=== PATIENT | female | born 1960 | race African-American/Black ===

== ENCOUNTER 2018-11-07 10:01 | Inpatient (IN) | payer MEDICAID ==
[~2018-11-07] VITALS: Ht 167.6 cm; Wt 49.2 kg
[2018-11-07] MEDS ORDERED: ASPIRIN 81MG TABLET PO ONE (10:45)
[2018-11-07] MEDS ORDERED: LEVOFLOXACIN 750MG PREMIX 150 ML IV ONE (10:45)
[2018-11-07] MEDS ORDERED: SODIUM CHLORIDE 0.9% 1000ML BAG (SEPSIS BOLUS) IV ONE (10:45)
[2018-11-07] MEDS ORDERED: DIPHENHYDRAMINE 50MG/ML VIAL IV ONE (10:45)
[2018-11-07] MEDS ORDERED: NITROGLYCERIN 0.4MG TABLET SL SL PRN ×2 (10:45→15:30)
[2018-11-07 11:10] LABS: CLARITY URINE CLEAR (CLEAR); COLOR URINE YELLOW (YELLOW); KETONES URINE NEGATIVE (NEGATIVE); LEUKOCYTE ESTERASE URINE NEGATIVE (NEGATIVE); NITRITE URINE NEGATIVE (NEGATIVE); OCCULT BLOOD URINE NEGATIVE (NEGATIVE); PROTEIN URINE NEGATIVE (NEGATIVE)
[2018-11-07 11:45] LABS: BASOPHILS % 1.1 % (0.0-2.0); EOSINOPHILS % 2.3 % (0.0-5.0); HEMATOCRIT. 45.8 % (36.0-48.0); HEMOGLOBIN. 15.2 g/dL (12.0-16.0); LYMPHOCYTES % 26.1 % (20.0-50.0); MEAN CORPUSCULAR HEMOGLOBIN 30.6 pg (28.0-32.0); MEAN PLATELET VOLUME 9.5 fl (7.4-10.4); MONOCYTES % 13.5 % (2.0-8.0); PLATELET 207 x1000/uL (130-400); RED BLOOD CELL COUNT 4.98 mill/uL (4.2-5.4); RED CELL DISTRIBUTION WIDTH 14.3 % (11.6-14.6)
[2018-11-07 11:59] LABS: D-DIMER 0.25 mg/L FEU (<0.50); PARTIAL THROMBOPLASTIN TIME 26.8 sec (23.4-31.0)
[2018-11-07 12:14] LABS: CHLORIDE 109 mEq/L (98-107)
[2018-11-07] MEDS ORDERED: PHENYTOIN SODIUM 1,000 MG in SODIUM CHLORIDE 0.9% 100 ML IV ONE (13:00)
[2018-11-07] MEDS ORDERED: DOCUSATE SODIUM 100MG CAPSULE PO PRN (15:30)
[2018-11-07] MEDS ORDERED: IPRATROPIUM/ALBUTEROL 0.5-3(2.5)MG/3ML NEB INH PRN (15:30)
[2018-11-07] MEDS ORDERED: KETOROLAC 15MG/ML VIAL IV PRN (15:30)
[2018-11-07] MEDS ORDERED: MAGNESIUM/ALUMINUM HYDROXIDE/SIMETHICONE 30ML UDC PO PRN (15:30)
[2018-11-07] MEDS ORDERED: LORAZEPAM 0.5MG TABLET PO PRN (15:30)
[2018-11-07] MEDS ORDERED: ZOLPIDEM TARTRATE 5MG TABLET PO PRN (15:30)
[2018-11-07] MEDS ORDERED: GUAIFENESIN 200MG/10ML SUGAR FREE UDC PO PRN (15:30)
[2018-11-07] MEDS ORDERED: ACETAMINOPHEN 325MG TABLET PO PRN (15:30)
[2018-11-07] MEDS ORDERED: ONDANSETRON HCL 4MG/2ML INJ IV PRN (15:30)
[2018-11-07] MEDS ORDERED: CLONIDINE 0.1MG TABLET PO PRN (15:30)
[2018-11-07 18:28] VITALS: BP 188/116
[2018-11-07] MEDS: DILTIAZEM HCL 60MG TABLET PO SCH (18:35)
[2018-11-07 20:00] VITALS: BP 157/78
[2018-11-07] MEDS: FAMOTIDINE 20MG TABLET PO SCH (20:43)
[2018-11-07] MEDS ORDERED: ENOXAPARIN 40MG/0.4ML SYR SUBCUT SCH (21:00)
[2018-11-07 21:30] VITALS: BP 157/78
[2018-11-07] MEDS ORDERED: IBUP-2028 MT (22:57)
[2018-11-07] MEDS ORDERED: MULT-1146 MT (22:57)
[2018-11-07] MEDS ORDERED: PHEN100C4 MT (22:57)
[2018-11-07] MEDS ORDERED: AMLO5TAB88 MT (22:57)
[2018-11-07 23:45] VITALS: BP 118/79
[2018-11-08 04:00] VITALS: BP 164/90
[2018-11-08] MEDS: DILTIAZEM HCL 60MG TABLET PO SCH ×3 (05:23→13:26)
[2018-11-08] MEDS ORDERED: PHEN200C5 PO (05:34)
[2018-11-08 08:00] VITALS: BP 127/85
[2018-11-08] MEDS ORDERED: ASPIRIN 325MG EC TABLET PO SCH (09:00)
[2018-11-08] MEDS: FAMOTIDINE 20MG TABLET PO SCH (10:10)
[2018-11-08 10:26] LABS: CREATINE KINASE 71 IU/L (26-192)
[2018-11-08 12:00] VITALS: BP 154/85
[2018-11-08 14:11] VITALS: BP 154/85
[2018-11-08 16:00] VITALS: BP 118/82
== END 2018-11-08 16:21 | disposition home or self-care (01) | DRG 816 ==
LOC: ER 10:01 → 6WST 13:27 → ENRESERV 15:44 → 6WST 18:29
PROVIDERS: ADMIT Internal Medicine; ATTEND Internal Medicine
DX: T40.5X1A Poisoning by cocaine, accidental (unintentional), initial encounter (principal); J90 Pleural effusion, not elsewhere classified; G40.909 Epilepsy, unspecified, not intractable, without status epilepticus; F17.210 Nicotine dependence, cigarettes, uncomplicated; I10 Essential (primary) hypertension; J98.11 Atelectasis; F14.10 Cocaine abuse, uncomplicated; J44.9 Chronic obstructive pulmonary disease, unspecified; I73.9 Peripheral vascular disease, unspecified; R07.89 Other chest pain; Y92.89 Other specified places as the place of occurrence of the external cause
CPT/HCPCS: 36415; 71045; 80061; 80185; 82550; 82553; 83036; 83605; 83880; 84145; 84484; 85379; 87804; 93005; 93970; 96365; 96375; 99285; J1165; J1200; J1650; J1956; J7030; J7050

== ENCOUNTER 2023-12-20 00:47 | Inpatient (IN) | payer MEDICAID ==
[~2023-12-20] VITALS: Ht 167.6 cm; Wt 53.7 kg
[~2023-12-20 00:47] MED LIST: ALBU18HF2 IH; AMLO5TAB88 MT; BENZ100C86 MT; FAMO20TA8 MT; GUAI600T44 PO; MULT-1146 MT; P20 MT; PHEN100C4 PO
[2023-12-20 01:16] LABS: BASOPHILS % 1.7 % (0.0-2.0); HEMATOCRIT. 41.8 % (36.0-48.0); MEAN CORPUSCULAR HEMOGLOBIN 30.7 pg (28.0-32.0); MEAN CORPUSCULAR HGB CONC 33.5 g/dL (31.0-37.0); MEAN CORPUSCULAR VOLUME 91.9 fL (81.0-99.0); MEAN PLATELET VOLUME 9.3 fl (7.4-10.4); MONOCYTES % 9.3 % (2.0-8.0); PLATELET 187 x1000/uL (130-400); RED BLOOD CELL COUNT 4.55 mill/uL (4.2-5.4); RED CELL DISTRIBUTION WIDTH 16.1 % (11.6-14.6); WHITE BLOOD COUNT 4.2 x1000/uL (4.5-11.0)
[2023-12-20 01:25] LABS: *AMPHETAMINES SCREEN URINE NEGATIVE (NEGATIVE); *BARBITURATES SCREEN URINE NEGATIVE (NEGATIVE); *BENZODIAZEPINES SCREEN URINE NEGATIVE (NEGATIVE); *COCAINE SCREEN URINE PRESUMPTIVE POSITIVE (NEGATIVE); CANNABINOID URINE SCREEN NEGATIVE (NEGATIVE); ECSTASY MDMA SCREEN URINE NEGATIVE (NEGATIVE); METHADONE URINE SCREEN Neg (NEGATIVE); OPIATES URINE SCREEN NEGATIVE (NEGATIVE); PHENCYCLIDINE URINE SCREEN NEGATIVE (NEGATIVE)
[2023-12-20 01:27] LABS: PARTIAL THROMBOPLASTIN TIME 25.6 sec (23.4-31.0); PROTHROMBIN TIME 10.8 sec (9.6-11.0)
[2023-12-20 01:37] LABS: ALANINE AMINOTRANSFERASE 9 IU/L (10-49); ALBUMIN 4.5 g/dL (3.2-4.8); ASPARTATE AMINOTRANSFERASE 17 IU/L (<34); BILIRUBIN TOTAL 0.6 mg/dL (0.1-1.0); CALCIUM 8.7 mg/dL (8.7-10.4); CARBON DIOXIDE 29 mEq/L (21-32); CHLORIDE 104 mEq/L (98-107); CREATININE 1.1 mg/dL (0.6-1.0); GLUCOSE 92 mg/dL (70-105); POTASSIUM 3.6 mEq/L (3.5-5.1); PROTEIN TOTAL 7.9 g/dL (6.0-8.3); SODIUM 138 mEq/L (136-145); TROPONIN I HIGH SENSITIVITY 15 ng/L (3.0-34); UREA NITROGEN BLOOD 14 mg/dL (9-23)
[2023-12-20 01:39] LABS: ETHANOL BLOOD < 10 mg/dL (<10)
[2023-12-20 07:40] VITALS: BP 177/83; PULSE 64; RESP 18; TEMP 97.5
[2023-12-20] MEDS ORDERED: ONDANSETRON HCL 4MG/2ML INJ IV PRN (10:15)
[2023-12-20] MEDS ORDERED: ACETAMINOPHEN 325MG TABLET PO PRN (10:15)
[2023-12-20] MEDS: AMLODIPINE 10MG TABLET PO SCH (10:40)
[2023-12-20 12:00] VITALS: BP 155/84; PULSE 74; RESP 18; TEMP 97.7
[2023-12-20] MEDS: PREDNISONE 20MG TABLET PO SCH (13:30)
[2023-12-20 20:00] VITALS: BP 160/89; PULSE 78; RESP 20; TEMP 97.7
[2023-12-20 20:12] VITALS: PULSE 84; RESP 18
[2023-12-20] MEDS: IPRATROPIUM/ALBUTEROL 0.5-3(2.5)MG/3ML NEB HHN SCH (20:12)
[2023-12-20] MEDS: PHENYTOIN SODIUM EXTENDED 100MG CAPSULE PO SCH (20:55)
[2023-12-20] MEDS: ENOXAPARIN 40MG/0.4ML SYR SUBCUT SCH (20:55)
[2023-12-21] VITALS (7 sets, daily range): BP systolic 118–153; BP diastolic 59–88; PULSE 73–88; RESP 16–20; TEMP 97–97.6; O2SAT 95–99
[2023-12-21] MEDS ORDERED: P20 MT (10:30)
[2023-12-21] MEDS ORDERED: ALBU18HF2 IH (10:30)
[2023-12-21] MEDS ORDERED: AMLO10TA80 MT (10:30)
[2023-12-21] MEDS ORDERED: FLUT1DIS3 INH (10:30)
== END 2023-12-21 18:16 | disposition home or self-care (01) | DRG 816 ==
LOC: ER 00:58 → 7WST 05:25 → EDBEDREQ 05:40 → EDBEDREQTM 05:40
PROVIDERS: ADMIT Internal Medicine; ATTEND Internal Medicine
DX: T40.5X1A Poisoning by cocaine, accidental (unintentional), initial encounter (principal); J68.0 Bronchitis and pneumonitis due to chemicals, gases, fumes and vapors; F14.90 Cocaine use, unspecified, uncomplicated; I16.0 Hypertensive urgency; G40.909 Epilepsy, unspecified, not intractable, without status epilepticus; I10 Essential (primary) hypertension; F17.210 Nicotine dependence, cigarettes, uncomplicated
CPT/HCPCS: 36415; 71045; 80053; 80305; 80320; 83880; 84484; 85025; 93005; 94640; 99285; J1650; J7512; G0480